=== PATIENT | female | born 1980 | race Caucasian/White ===

== ENCOUNTER 2017-06-23 09:10 | Day surgery (SDC) | payer OTHER ==
[2017-06-22 17:16] VITALS: BMI 25.8
[2017-06-23] MEDS ORDERED: Oxymetazoline HCl 0.05% ( 15 ML ) ONE ×2 (09:59→10:11)
[2017-06-23] MEDS ORDERED: Midazolam HCl 2 mg/2 ml Vial ONE (09:59)
[2017-06-23] MEDS ORDERED: Scopolamine 1.5 mg/72 hour Patch ONE (10:00)
[2017-06-23] MEDS ORDERED: Lidocaine 1% w/Epinephrine 1:200K 30 ML VIAL ONE (10:11)
[2017-06-23] MEDS ORDERED: Fentanyl 100 MCG/2 ML VIAL ONE ×2 (10:15→12:14)
[2017-06-23] MEDS ORDERED: Promethazine HCl 25 MG/ML VIAL ONE (11:35)
[2017-06-23] MEDS ORDERED: Propofol 200 MG/20 ML VIAL ONE (13:09)
[2017-06-23] MEDS ORDERED: Succinylcholine Chloride 20 MG/ML 10 ml SYRINGE FS ONE (13:09)
[2017-06-23] MEDS ORDERED: Metoclopramide HCl 10 MG/2 ML VIAL ONE (13:09)
[2017-06-23] MEDS ORDERED: Lidocaine 1% PF 5 ML VIAL ONE (13:09)
[2017-06-23] MEDS ORDERED: Ondansetron HCl/PF 4 MG/2 ML Vial ONE (13:09)
[2017-06-23] MEDS ORDERED: Dexamethasone 20 MG/5 ML VIAL ONE (13:09)
[2017-06-23] MEDS ORDERED: Morphine 4 MG/ML VIAL ONE (14:01)
[2017-06-23] MEDS ORDERED: Ondansetron ODT 4 MG TAB ONE (14:21)
--- NOTE | 2017-06-24 11:39 | OP ---
DATE OF PROCEDURE: 06/23/2017 PREOPERATIVE DIAGNOSES: 1. Chronic rhinosinusitis. 2. Bilateral inferior turbinate hypertrophy. 3. Adenoid hypertrophy. 4. Nasopharyngeal cyst and nasopharyngitis, chronic. SURGEON: Dr. Ney Clements. ESTIMATED BLOOD LOSS: 50 mL. COMPLICATIONS: None. ANESTHESIA: GETA. DESCRIPTION OF PROCEDURE: Patient was taken to the operating room and placed supine on the table. G eneral endotracheal anesthesia was obtained by the Anesthesia staff. Tube was secured in the left lo wer lip. Patient was then placed in the beach chair position, and Afrin pledgets were placed in the n twyla cavity as the patient was prepped and draped for standard nasal procedure. Following this, the 0 degree endoscope was advanced in the nasal cavity. The middle turbinates were red and irritated. There was scant amount of mucopurulent from the middle meatus today, streaming posteriorly. The naso pharynx was visualized with a 0 degree scope and the adenoid pad was noted to be mildly inflamed in t he midline. Unfortunately, there was a midline cyst approximately 2 cm with yellow purulence extrudi ng from this. The straight Blakesley forceps was used along with the 0 degree endoscope to resect th e anterior wall of the cyst where an approximately 1 sq cm area of allergic fungal mucin was encounte red. The suction Bovie was then used to cauterize and destroyed the remainder of the cyst. The late ral edges of this cyst which were the adenoid pad was then removed using the suction Bovie. Followin g this, the 0 degree scope was then used to make injections of 1% lidocaine with 1:100,000 epinephrin e into the inferior turbinates, middle turbinates, and lateral nasal wall bilaterally. Following thi s, the middle turbinates were gently medialized with a Barco elevator and the uncinate process was vi sualized bilaterally. The ball ended probe was then used to anteriorly fracture the uncinate bilater ally. Following this, the uncinate process was removed bilaterally using the microdebrider and the u pbiting Blakesley forceps. Following this, the ball ended probe was then used to gently identify the natural maxillary sinus ostia, which was then widened using the straight Blakesley forceps and the 0 degree microdebrider. Following this, the ethmoidal bulla was identified and was punctured on its m edial and inferior aspect and was removed using the microdebrider. The grand lamella was then identi fied and was punctured in the posterior ethmoidal cells. Working from posterior to anterior, the eth moidal cells were opened in a mucosal-sparing technique. Following this, the sphenoid sinuses were t hen approached through the ethmoidectomies bilaterally with the sphenoid sinus ostia was identified a nd was gently widened medially and inferiorly using the 0 degree microdebrider. Following this, a 40 -degree RADenoid microdebrider blade and the 45-degree endoscope was used to visualize the frontal re cess area. The frontal sinus ostia was identified and gently widened anteriorly with the microdebrid er and upbiting Blakesley forceps. Following this, inferior turbinates were punctured with the submu cosal microdebrider and submucosal resection was performed of the anterior inferior portions on the i nferior turbinates bilaterally. Following this, the nasal cavity was irrigated. MeroPacks were plac ed within the middle meatus. The patient tolerated the procedure well.
[2017-06-26 16:10] LABS: Fungus Stain Final report (.)
== END 2017-06-23 14:35 | disposition home or self-care (01) ==
LOC: SDC 09:10
PROVIDERS: ATTEND Otolaryngology Plastic Surgery within the Head & Neck
PROC: 09TV8ZZ Resection of Left Ethmoid Sinus, Via Natural or Artificial Opening Endoscopic (ICD-10-PCS; principal; 2017-06-23)
PROC: 09BT8ZZ Excision of Left Frontal Sinus, Via Natural or Artificial Opening Endoscopic (ICD-10-PCS; principal; 2017-06-23)
PROC: 09CW8ZZ Extirpation of Matter from Right Sphenoid Sinus, Via Natural or Artificial Opening Endoscopic (ICD-10-PCS; principal; 2017-06-23)
PROC: 099R8ZZ Drainage of Left Maxillary Sinus, Via Natural or Artificial Opening Endoscopic (ICD-10-PCS; principal; 2017-06-23)
PROC: 09TU8ZZ Resection of Right Ethmoid Sinus, Via Natural or Artificial Opening Endoscopic (ICD-10-PCS; principal; 2017-06-23)
PROC: 099Q8ZZ Drainage of Right Maxillary Sinus, Via Natural or Artificial Opening Endoscopic (ICD-10-PCS; principal; 2017-06-23)
PROC: 09CX8ZZ Extirpation of Matter from Left Sphenoid Sinus, Via Natural or Artificial Opening Endoscopic (ICD-10-PCS; principal; 2017-06-23)
PROC: 0CTQXZZ Resection of Adenoids, External Approach (ICD-10-PCS; principal; 2017-06-23)
PROC: 09TL8ZZ Resection of Nasal Turbinate, Via Natural or Artificial Opening Endoscopic (ICD-10-PCS; principal; 2017-06-23)
PROC: 09BS8ZZ Excision of Right Frontal Sinus, Via Natural or Artificial Opening Endoscopic (ICD-10-PCS; principal; 2017-06-23)
DX: J32.9 Chronic sinusitis, unspecified (principal); J34.3 Hypertrophy of nasal turbinates; J35.2 Hypertrophy of adenoids; J31.1 Chronic nasopharyngitis; J39.2 Other diseases of pharynx; E03.9 Hypothyroidism, unspecified; E06.3 Autoimmune thyroiditis; F32.9 Major depressive disorder, single episode, unspecified; Z79.2 Long term (current) use of antibiotics; Z79.51 Long term (current) use of inhaled steroids; Z79.899 Other long term (current) drug therapy; Z88.1 Allergy status to other antibiotic agents; Z88.5 Allergy status to narcotic agent; Z88.0 Allergy status to penicillin; Z90.710 Acquired absence of both cervix and uterus; Z90.49 Acquired absence of other specified parts of digestive tract; Z90.722 Acquired absence of ovaries, bilateral; Z90.79 Acquired absence of other genital organ(s); Z98.890 Other specified postprocedural states; Z85.9 Personal history of malignant neoplasm, unspecified
CPT/HCPCS: 85014; 87070; 87102; 87205; 87206; 96374; J1100; J2001; J2250; J2270; J2405; J2550; J2704; J2765; J3010; Q0162

== ENCOUNTER 2019-07-07 19:30 | Outpatient (CLI) | payer OTHER | END 2019-07-07 19:31 | disposition home or self-care (01) | LOC: SLEEPLAB 19:30 | PROVIDERS: ATTEND Otolaryngology Plastic Surgery within the Head & Neck | DX: G47.33 Obstructive sleep apnea (adult) (pediatric) (principal); R53.83 Other fatigue; R40.0 Somnolence; R51 Headache; R06.83 Snoring; F41.9 Anxiety disorder, unspecified | CPT/HCPCS: 95810 ==

== ENCOUNTER 2019-08-19 19:30 | Outpatient (CLI) | payer OTHER | END 2019-08-19 19:31 | disposition home or self-care (01) | LOC: SLEEPLAB 19:30 | PROVIDERS: ATTEND Otolaryngology Plastic Surgery within the Head & Neck | DX: G47.33 Obstructive sleep apnea (adult) (pediatric) (principal); R53.83 Other fatigue; R51 Headache; R40.0 Somnolence; R06.83 Snoring; F41.9 Anxiety disorder, unspecified; Z68.24 Body mass index [BMI] 24.0-24.9, adult | CPT/HCPCS: 95811 ==

== ENCOUNTER 2020-05-31 19:00 | Outpatient (CLI) | payer OTHER | END 2020-05-31 19:01 | disposition home or self-care (01) | LOC: SLEEPLAB 19:00 | PROVIDERS: ATTEND Otolaryngology Plastic Surgery within the Head & Neck | DX: G47.33 Obstructive sleep apnea (adult) (pediatric) (principal); R53.83 Other fatigue; R51.9 Headache, unspecified; R06.83 Snoring; F41.9 Anxiety disorder, unspecified | CPT/HCPCS: 95811 ==